=== PATIENT | female | born 1970 | race Caucasian/White ===

== ENCOUNTER → 2023-03-05 | Outpatient (CLI) | payer OTHER ==
[~2023-03-05] VITALS: Ht 170.2 cm; Wt 113.4 kg
[~2023-03-05] MED LIST: albuterol 2.5 MG/3 ML nebule NEB ONE
[2023-03-05 10:01] VITALS: PULSE 62; RESP 16; O2SAT 100
== END | disposition home or self-care (01) ==
LOC: RT 09:35
PROVIDERS: ATTEND Chiropractor
DX: D86.0 Sarcoidosis of lung (principal); R94.2 Abnormal results of pulmonary function studies; J84.10 Pulmonary fibrosis, unspecified
CPT/HCPCS: 71046; 94060; 94760